=== PATIENT | male | born 1995 | race Caucasian/White ===

== ENCOUNTER 2019-05-01 18:57 | Emergency (ER) | payer MEDICAID ==
[~2019-05-01] VITALS: Ht 175.3 cm; Wt 46.3 kg
[2019-05-01 19:34] VITALS: BP 124/89
== END 2019-05-01 21:20 | disposition home or self-care (01) ==
LOC: ER 18:57
DX: R59.0 Localized enlarged lymph nodes (principal); F17.200 Nicotine dependence, unspecified, uncomplicated; F12.90 Cannabis use, unspecified, uncomplicated; Z88.0 Allergy status to penicillin
CPT/HCPCS: 99281

== ENCOUNTER 2019-05-05 10:40 | Emergency (ER) | payer MEDICAID ==
[~2019-05-05] VITALS: Ht 175.3 cm; Wt 52.0 kg
[2019-05-05 10:45] VITALS: BP 127/94
== END 2019-05-05 12:07 | disposition home or self-care (01) ==
LOC: ER 10:41
DX: A08.4 Viral intestinal infection, unspecified (principal); R59.1 Generalized enlarged lymph nodes; R05 Cough; F17.210 Nicotine dependence, cigarettes, uncomplicated; F12.90 Cannabis use, unspecified, uncomplicated; Z71.6 Tobacco abuse counseling; Z88.0 Allergy status to penicillin
CPT/HCPCS: 99281; 99406

== ENCOUNTER 2023-01-25 15:06 | Emergency (ER) | payer MEDICAID ==
[~2023-01-25] VITALS: Ht 172.7 cm; Wt 65.0 kg
[2023-01-25 15:29] VITALS: BP 97/66; PULSE 67; RESP 18; TEMP 98.7; O2SAT 97
== END 2023-01-25 16:44 | disposition home or self-care (01) ==
LOC: ER 15:06
DX: S60.221A Contusion of right hand, initial encounter (principal); S90.512A Abrasion, left ankle, initial encounter; M79.641 Pain in right hand; F12.90 Cannabis use, unspecified, uncomplicated; Z88.0 Allergy status to penicillin; X58.XXXA Exposure to other specified factors, initial encounter; Y93.89 Activity, other specified; Y92.89 Other specified places as the place of occurrence of the external cause; Y99.8 Other external cause status
CPT/HCPCS: 73130; 73610; 99284

== ENCOUNTER 2023-02-01 18:43 | Emergency (ER) | payer MEDICAID ==
[~2023-02-01] VITALS: Ht 175.3 cm; Wt 59.1 kg
[2023-02-01 19:01] VITALS: TEMP 97.7
--- NOTE | 2023-02-01 20:04 | NUR ---
CALLED [facility], REPORT HAS ALREADY BEEN MADE. THERE IS NO CASE NUMBER ASSOCIATED WITH CASE YET.
[2023-02-01] MEDS ORDERED: acetaminophen 325mg tablet PO ONE (21:05)
[2023-02-01 21:08] VITALS: BP 114/71; PULSE 65; RESP 16; O2SAT 99
[2023-02-01] MEDS ORDERED: bacitracin 15gm ointment TP ONE (21:10)
== END 2023-02-01 23:19 | disposition home or self-care (01) ==
LOC: ER 18:43
DX: S00.83XA Contusion of other part of head, initial encounter (principal); Z88.0 Allergy status to penicillin; Y08.89XA Assault by other specified means, initial encounter; Y93.89 Activity, other specified; Y92.89 Other specified places as the place of occurrence of the external cause; Y99.8 Other external cause status; F12.90 Cannabis use, unspecified, uncomplicated
CPT/HCPCS: 70450; 70486; 99284

== ENCOUNTER 2023-09-30 17:27 | Emergency (ER) | payer MEDICAID ==
[~2023-09-30] VITALS: Ht 175.3 cm; Wt 52.0 kg
[2023-09-30 17:37] VITALS: BP 115/69; PULSE 75; RESP 18; TEMP 98; O2SAT 98
[2023-09-30] MEDS ORDERED: CEPH-585 PO (19:06)
== END 2023-09-30 19:44 | disposition home or self-care (01) ==
LOC: ER 17:28
DX: S60.011A Contusion of right thumb without damage to nail, initial encounter (principal); S80.01XA Contusion of right knee, initial encounter; F12.90 Cannabis use, unspecified, uncomplicated; Z88.0 Allergy status to penicillin; W17.89XA Other fall from one level to another, initial encounter; Y93.89 Activity, other specified; Y92.89 Other specified places as the place of occurrence of the external cause; Y99.8 Other external cause status
CPT/HCPCS: 73130; 73564; 99284

== ENCOUNTER 2023-11-26 10:12 | Emergency (ER) | payer MEDICAID ==
[~2023-11-26] VITALS: Ht 175.3 cm; Wt 51.2 kg
[2023-11-26 10:25] VITALS: BP 106/66; PULSE 100; RESP 18; TEMP 97.8; O2SAT 100
[2023-11-26] MEDS ORDERED: PRED20TA PO (11:33)
[2023-11-26] MEDS ORDERED: AZIT250T83 PO (11:33)
[2023-11-26] MEDS ORDERED: ALBU8HFA INH (11:33)
== END 2023-11-26 11:46 | disposition home or self-care (01) ==
LOC: ER 10:13
DX: J22 Unspecified acute lower respiratory infection (principal); R51.9 Headache, unspecified; Z59.00 Homelessness unspecified; F12.90 Cannabis use, unspecified, uncomplicated; Z88.1 Allergy status to other antibiotic agents
CPT/HCPCS: 71045; 99283

== ENCOUNTER 2024-03-27 01:35 | Emergency (ER) | payer MEDICAID ==
[~2024-03-27] VITALS: Ht 162.6 cm; Wt 51.4 kg
[2024-03-27 03:03] VITALS: BP 133/86; PULSE 48; RESP 15; TEMP 98.6; O2SAT 99
== END 2024-03-27 03:05 | disposition home or self-care (01) ==
LOC: ER 01:36
DX: T40.411A Poisoning by fentanyl or fentanyl analogs, accidental (unintentional), initial encounter (principal); F17.200 Nicotine dependence, unspecified, uncomplicated; F12.90 Cannabis use, unspecified, uncomplicated; Z88.0 Allergy status to penicillin; Y92.89 Other specified places as the place of occurrence of the external cause
CPT/HCPCS: 99281

== ENCOUNTER 2024-06-05 17:18 | Emergency (ER) | payer MEDICAID ==
[~2024-06-05] VITALS: Ht 167.6 cm; Wt 51.4 kg
[2024-06-05 17:21] VITALS: BP 110/66; PULSE 82; RESP 16; TEMP 100.2; O2SAT 98
[2024-06-05] MEDS ORDERED: hydrOXYzine 25 MG tablet PO ONE (18:45)
[2024-06-05] MEDS ORDERED: cephalexin 250mg capsule PO ONE (18:45)
== END 2024-06-05 19:14 | disposition left against medical advice (07) ==
LOC: ER 17:18
DX: B86 Scabies (principal); F12.90 Cannabis use, unspecified, uncomplicated; Z76.0 Encounter for issue of repeat prescription; Z88.0 Allergy status to penicillin
CPT/HCPCS: 99283